=== PATIENT | female | born 1950 | race Caucasian/White ===

== ENCOUNTER 2022-03-28 18:14 | Emergency (ER) | payer MEDICARE ==
[~2022-03-28] VITALS: Ht 165.1 cm; Wt 104.3 kg
[2022-03-28] MEDS ORDERED: HYDR1TAB94 PO (20:43)
== END 2022-03-28 21:01 | disposition home or self-care (01) ==
LOC: ER 18:14
DX: B02.9 Zoster without complications (principal)
CPT/HCPCS: 99282; A9270